=== PATIENT | female | born 1995 | race Two or more races ===

== ENCOUNTER 2021-05-17 14:26 | Emergency (ER) | payer OTHER ==
[~2021-05-17] VITALS: Ht 162.6 cm; Wt 100.8 kg
[2021-05-17] MEDS ORDERED: MORPHINE SULFATE 4 MG/ML, 1ML IVPush PRN (15:00)
[2021-05-17] MEDS ORDERED: FAMOTIDINE 20 MG/2 ML IVPush ONE (15:00)
[2021-05-17] MEDS ORDERED: ONDANSETRON 2MG/ML, 2ML IVPush ONE (15:00)
[2021-05-17] MEDS ORDERED: SODIUM CHLORIDE 0.9% 1,000ML IVBOLUS ONE (15:00)
[2021-05-17] MEDS ORDERED: ONDANSETRON 2MG/ML, 2ML ONE (15:20)
[2021-05-17] MEDS ORDERED: MORPHINE SULFATE 4 MG/ML, 1ML ONE (15:20)
[2021-05-17] MEDS ORDERED: FAMOTIDINE 20 MG/2 ML ONE (15:20)
[2021-05-17 15:29] LABS: BASOPHILS % (AUTO) 1 % (0-1); EOSINOPHILS % (AUTO) 1 % (1-7); LYMPHOCYTES % (AUTO) 27 % (22-44); MEAN CORPUSCULAR HEMOGLOBIN 30.5 pg (27.0-34.8); MEAN CORPUSCULAR HGB CONC 33.8 g/dL (32.4-35.8); MEAN PLATELET VOLUME 9.3 fL (7.4-10.4); MONOCYTES % (AUTO) 9 % (2-9); NEUTROPHILS % (AUTO) 61 % (42-75); PLATELET COUNT 171 x10^3/uL (130-400); RED BLOOD COUNT 5.05 x10^6/uL (3.82-5.3); RED CELL DISTRIBUTION WIDTH 13.1 % (9.6-15.2)
[2021-05-17] MEDS ORDERED: PLEASE ENTER ALLERGIES MC SCH (15:30)
--- NOTE | 2021-05-17 15:31 | NUR ---
PT AMBULARTED TO RESTROOM WITH STEADY GAIT TO PROVIDE URINE SAMPLE. UA COLLECTED AND SENT TO LAB. PIV PLACED, LABS DRAWN AND SENT WITH LAB SLIP. MEDS ADMIN, IVF RUNNING. PT CONNECTED TO MONITORING. CALL LIGHT IN REACH.
[2021-05-17 15:37] LABS: MICROSCOPIC INDICATED
[2021-05-17 15:40] LABS: ALBUMIN 3.7 g/dL (3.4-5.0); ANION GAP 10 mmol/L (5-15); CALCIUM 8.9 mg/dL (8.5-10.1); CHLORIDE 106 mmol/L (98-107)
[2021-05-17 15:46] LABS: ALANINE AMINOTRANSFERASE 17 U/L (12-78); ALKALINE PHOSPHATASE 62 U/L (45-117); BILIRUBIN,TOTAL 1.3 mg/dL (0.2-1.0); CREATININE 0.62 mg/dL (0.55-1.02)
--- NOTE | 2021-05-17 16:03 | NUR ---
US AT BEDSIDE
--- NOTE | 2021-05-17 16:41 | NUR ---
ALL RESULTS ARE BACK AT THIS TIME. CHART UP FOR RECHECK.
[2021-05-17] MEDS ORDERED: POTASSIUM CHLORIDE 20 MEQ TAB.ER.PRT PO ONE (17:00)
[2021-05-17] MEDS ORDERED: POTASSIUM CHLORIDE 20 MEQ TAB.ER.PRT ONE (17:00)
--- NOTE | 2021-05-17 17:02 | NUR ---
ASSISTANT SCIENTIST PER MAR.
[2021-05-17 17:03] VITALS: BP 131/77
== END 2021-05-17 17:27 | disposition home or self-care (01) ==
LOC: ED 17:00
DX: N30.00 Acute cystitis without hematuria (principal); R10.13 Epigastric pain; R19.7 Diarrhea, unspecified; E87.6 Hypokalemia
CPT/HCPCS: 36415; 76700; 80053; 81001; 83690; 84703; 85025; 87086; 96361; 96374; 96375; 99284; J2270; J2405; J7030